=== PATIENT | male | born 1970 ===

== ENCOUNTER 2019-10-16 13:02 | Emergency (ER) | payer SELFPAY ==
--- NOTE | 2019-10-16 13:49 | RAD ---
Exam:Left ankle 3 views HISTORY: Pain COMPARISON: None FINDINGS: Intact ankle mortise. No fracture. Mild soft tissue swelling IMPRESSION: Soft tissue swelling, without evidence of fracture.
== END 2019-10-16 15:05 | disposition home or self-care (01) ==
LOC: ERS 13:02
DX: M25.471 Effusion, right ankle (principal); E78.5 Hyperlipidemia, unspecified; E78.00 Pure hypercholesterolemia, unspecified; I10 Essential (primary) hypertension; F17.210 Nicotine dependence, cigarettes, uncomplicated